=== PATIENT | female | born 1980 | race Caucasian/White ===

== ENCOUNTER 2017-11-03 14:46 | Emergency (ER) | payer BC ==
[~2017-11-03] VITALS: Ht 157.5 cm; Wt 105.7 kg
[~2017-11-03 14:46] MED LIST: ABILIFY10 MG; BACTRIM DS TAB1 EACH PO; BACTROBAN CREAM30 G1 TOP; BACTROBAN22 GM TP; BENADRYL25 MG PO; CEFDINIR; CELEXA40 MG PO; CIPROFLOXACIN500 M1 PO; CLEOCIN HCL150 MG PO; CLEOCIN HCL300 MG; CLEOCIN HCL300 MG PO; CLINDAMYCIN HC150 MG PO; CYMBALTA30 MG; DITROPAN XL10 M1 PO; DOXEPIN 10 MG C10 MG GT; DOXYCYCLINE; DOXYCYCLINE 10100 M1 PO; DOXYCYCLINE 10100 MG PO; DOXYCYCLINE150 MG; ERYTHROMYCIN E3.5 G1 OPHTHALMIC; EXPLANON; GABAPENTIN 100100 MG; HYDROCODONE-AP1 EAC6 PO; HYDROCORTISONE120 M1 TP; IBUPROFEN 800800 M1 PO; IBUPROFEN 800800 MG PO; LAMICTAL; LAMICTAL PO; LAMICTAL100 MG PO; LATUDA40 MG; LORTAB 5 MG/5001 TA1 PO; MACROBID 100 M100 M1 PO; METROGEL-VAGINA70 GM; MIRENA; NEURONTIN300 MG; NORCO 5-325 TA1 EAC1 PO; NORCO 5-325 TA1 EACH PO; NYSTATIN15 GM TP; ONDANSETRON HCL4 M2 PO; PERCOCET 10-321 EACH PO; PERCOCET 5-3251 EACH PO; PERCOCET 7.5-51 EACH PO; PERCOCET PO; PHENERGAN 25 MG25 MG PO; PREVACID30 MG PO; PROTONIX40 M1 PO; REXULTI1 MG PO; SORIATANE25 MG; STELARA90 MG/1 ML; TRILEPTAL150 MG PO; VISTARIL 25 MG25 M1 PO; ZOFRAN ODT4 MG PO; ZOFRAN4 MG PO
[2017-11-03] MEDS ORDERED: DOXYCYCLINE 10100 M1 PO (16:03)
[2017-11-03 16:09] VITALS: BP 141/85
[2017-11-03] MEDS ORDERED: NORCO 5-325 TA1 EACH PO (16:10)
== END 2017-11-03 16:11 | disposition home or self-care (01) ==
LOC: M.ERS 14:46
DX: L02.412 Cutaneous abscess of left axilla (principal); F17.210 Nicotine dependence, cigarettes, uncomplicated; Z88.1 Allergy status to other antibiotic agents; Z88.2 Allergy status to sulfonamides; Z88.8 Allergy status to other drugs, medicaments and biological substances

== ENCOUNTER 2018-05-20 21:59 | Emergency (ER) | payer OTHER ==
[~2018-05-20] VITALS: Ht 157.5 cm; Wt 101.6 kg
[2018-05-20] MEDS ORDERED: ZANTAC 150MG T150 MG PO (22:07)
[2018-05-20] MEDS ORDERED: NORCO 5-325 TA1 EAC1 PO (22:43)
[2018-05-20] MEDS ORDERED: CLINDAMYCIN HC300 MG PO (22:43)
[2018-05-20 22:52] VITALS: BP 140/89
== END 2018-05-20 22:53 | disposition home or self-care (01) ==
LOC: M.ERS 21:59
DX: L02.416 Cutaneous abscess of left lower limb (principal); F17.210 Nicotine dependence, cigarettes, uncomplicated; Z90.89 Acquired absence of other organs; Z90.49 Acquired absence of other specified parts of digestive tract; Z86.14 Personal history of Methicillin resistant Staphylococcus aureus infection; L40.9 Psoriasis, unspecified; Z88.2 Allergy status to sulfonamides; Z88.8 Allergy status to other drugs, medicaments and biological substances; Z88.1 Allergy status to other antibiotic agents

== ENCOUNTER 2018-10-30 19:15 | Emergency (ER) | payer OTHER ==
[~2018-10-30] VITALS: Ht 157.5 cm; Wt 105.2 kg
[~2018-10-30 19:15] MED LIST changes: +CLINDAMYCIN HC300 MG PO; +ZANTAC 150MG T150 MG PO
[2018-10-30] MEDS ORDERED: OMEPRAZOLE40 MG (19:25)
[2018-10-30] MEDS ORDERED: ATIVAN1 MG (19:25)
[2018-10-30] MEDS ORDERED: ROPINIROLE HCL2 M1 (19:26)
[2018-10-30] MEDS ORDERED: MYRBETRIQ50 MG (19:26)
[2018-10-30] MEDS ORDERED: DOXYCYCLINE MO100 M1 PO (19:48)
[2018-10-30] MEDS ORDERED: ACETAMINOPHEN-1 EAC1 PO (20:02)
[2018-10-30 20:19] VITALS: BP 139/77
== END 2018-10-30 20:20 | disposition home or self-care (01) ==
LOC: M.ERS 19:15
DX: L02.412 Cutaneous abscess of left axilla (principal); L40.9 Psoriasis, unspecified; F17.210 Nicotine dependence, cigarettes, uncomplicated; Z88.2 Allergy status to sulfonamides; Z88.1 Allergy status to other antibiotic agents; Z88.8 Allergy status to other drugs, medicaments and biological substances; Z90.49 Acquired absence of other specified parts of digestive tract; Z86.14 Personal history of Methicillin resistant Staphylococcus aureus infection

== ENCOUNTER 2018-11-28 21:00 | Emergency (ER) | payer OTHER ==
[~2018-11-28] VITALS: Ht 157.5 cm; Wt 101.6 kg
[~2018-11-28 21:00] MED LIST changes: +ACETAMINOPHEN-1 EAC1 PO; +ATIVAN1 MG; +DOXYCYCLINE MO100 M1 PO; +MYRBETRIQ50 MG; +OMEPRAZOLE40 MG; +ROPINIROLE HCL2 M1
[2018-11-28] MEDS ORDERED: NORCO 5-325 TA1 EAC1 PO (21:53)
[2018-11-28] MEDS ORDERED: DOXYCYCLINE 10100 M1 PO (21:53)
[2018-11-28 22:12] VITALS: BP 155/78
== END 2018-11-28 22:12 | disposition home or self-care (01) ==
LOC: M.ERS 21:00
DX: L02.411 Cutaneous abscess of right axilla (principal); L40.9 Psoriasis, unspecified; Z86.14 Personal history of Methicillin resistant Staphylococcus aureus infection; Z90.49 Acquired absence of other specified parts of digestive tract; Z88.2 Allergy status to sulfonamides; Z88.1 Allergy status to other antibiotic agents; Z88.8 Allergy status to other drugs, medicaments and biological substances; F17.210 Nicotine dependence, cigarettes, uncomplicated

== ENCOUNTER 2019-11-16 17:50 | Emergency (ER) | payer OTHER ==
[~2019-11-16] VITALS: Ht 157.5 cm; Wt 94.8 kg
[2019-11-16] MEDS ORDERED: BUSPIRONE HCL15 MG PO (17:58)
[2019-11-16] MEDS ORDERED: REXULTI0.25 MG PO (17:58)
[2019-11-16] MEDS ORDERED: FLONASE 0.05%50 MCG NARES (17:58)
[2019-11-16] MEDS ORDERED: RX NASAL SPRAY (17:59)
[2019-11-16] MEDS ORDERED: BENTYL 10 MG CA10 M1 PO (18:08)
[2019-11-16] MEDS ORDERED: VANCOCIN 125 M125 M1 PO (18:08)
[2019-11-16 18:26] LABS: ABSOLUTE BASOPHILS 0.1 thou/uL (0.0-0.2); ABSOLUTE EOSINOPHILS 0.1 thou/uL (0.0-0.7); ABSOLUTE LYMPHOCYTES 2.9 thou/uL (0.8-5.3); ABSOLUTE MONOCYTES 0.6 thou/uL (0.0-1.2); BASOPHILS 0.9 %; EOSINOPHILS 1.1 %; HEMATOCRIT 42.7 % (37.0-47.0); HEMOGLOBIN 15.2 gm/dL (12.0-15.0); LYMPHOCYTES 33.3 %; MCH 31.5 pg (26.0-34.0); MCHC 35.5 g/dL (28.0-37.0); MCV 88.9 fL (80.0-100.0); MONOCYTES 7.3 %; NUCLEATED RBCS 0 /100WBC; PLATELET COUNT* 355 thou/uL (150-400); POLYS 57.4 %; RBC 4.81 mil/uL (4.20-5.00); RDW-CV 13.7 % (10.5-14.5); WBC 8.8 thou/uL (4.0-11.0)
[2019-11-16 18:34] LABS: CALCIUM 8.6 mg/dL (8.5-10.1); CREATININE 0.9 mg/dL (0.6-1.3); POTASSIUM 3.9 mmol/L (3.5-5.1)
[2019-11-16 18:39] LABS: ALBUMIN 3.2 g/dL (3.4-5.0); TOTAL BILIRUBIN 0.4 mg/dL (<0.1-1.0); TOTAL PROTEIN 7.2 g/dL (6.4-8.2)
[2019-11-16 19:39] VITALS: BP 148/98
== END 2019-11-16 19:40 | disposition home or self-care (01) ==
LOC: M.ERS 17:50
PROVIDERS: Physician Assistant
DX: R19.7 Diarrhea, unspecified (principal); R10.84 Generalized abdominal pain; L40.9 Psoriasis, unspecified; F17.210 Nicotine dependence, cigarettes, uncomplicated; Z88.1 Allergy status to other antibiotic agents; Z88.2 Allergy status to sulfonamides; Z88.8 Allergy status to other drugs, medicaments and biological substances; Z86.14 Personal history of Methicillin resistant Staphylococcus aureus infection; Z90.49 Acquired absence of other specified parts of digestive tract

== ENCOUNTER 2019-11-18 07:24 | Emergency (ER) | payer OTHER ==
[~2019-11-18] VITALS: Ht 157.5 cm; Wt 94.8 kg
[~2019-11-18 07:24] MED LIST changes: +BENTYL 10 MG CA10 M1 PO; +BUSPIRONE HCL15 MG PO; +FLONASE 0.05%50 MCG NARES; +REXULTI0.25 MG PO; +RX NASAL SPRAY; +VANCOCIN 125 M125 M1 PO
[2019-11-18 08:01] LABS: URINE BILIRUBIN NEGATIVE (Negative); URINE BLOOD 1+ (Negative); URINE CLARITY CLEAR; URINE COLOR YELLOW; URINE GLUCOSE-RANDOM NEGATIVE (Negative); URINE KETONES NEGATIVE (Negative); URINE LEUKOCYTES-REFLEX NEGATIVE (Negative); URINE NITRITE-REFLEX NEGATIVE (Negative); URINE PROTEIN NEGATIVE (Negative); URINE SPECIFIC GRAVITY 1.025 (1.005-1.030); URINE UROBILINOGEN 0.2 E.U./dl (0.2-1.0)
[2019-11-18 08:10] LABS: ABSOLUTE BASOPHILS 0.1 thou/uL (0.0-0.2); ABSOLUTE EOSINOPHILS 0.1 thou/uL (0.0-0.7); ABSOLUTE LYMPHOCYTES 2.6 thou/uL (0.8-5.3); ABSOLUTE MONOCYTES 0.6 thou/uL (0.0-1.2); ABSOLUTE NEUTROPHILS 4.5 thou/uL (1.6-8.1); EOSINOPHILS 1.5 %; HEMATOCRIT 43.5 % (37.0-47.0); HEMOGLOBIN 15.2 gm/dL (12.0-15.0); LYMPHOCYTES 33.2 %; MCH 31.2 pg (26.0-34.0); MCV 89.1 fL (80.0-100.0); MONOCYTES 7.2 %; NUCLEATED RBCS 0 /100WBC; PLATELET COUNT* 352 thou/uL (150-400); POLYS 57.1 %; RBC 4.89 mil/uL (4.20-5.00); RDW-CV 13.7 % (10.5-14.5); WBC 7.9 thou/uL (4.0-11.0)
[2019-11-18 08:20] LABS: BACTERIA-REFLEX 1-9 Few /HPF (None Seen); CASTS None Seen /LPF (None Seen); CRYSTALS None Seen /LPF (None Seen); MUCUS None Seen strn/LPF (None Seen); SQUAMOUS 4-10 Moderate /LPF (0-3); URINE RBC 3-10 Few /HPF (0-2); URINE WBC-REFLEX 0-5 Rare /HPF (0-5)
[2019-11-18 08:21] LABS: CALCIUM 8.9 mg/dL (8.5-10.1); CREATININE 0.8 mg/dL (0.6-1.3); POTASSIUM 3.8 mmol/L (3.5-5.1)
[2019-11-18 08:26] LABS: ALBUMIN 3.5 g/dL (3.4-5.0); TOTAL BILIRUBIN 0.4 mg/dL (<0.1-1.0); TOTAL PROTEIN 7.5 g/dL (6.4-8.2)
[2019-11-18 08:52] VITALS: BP 123/84
== END 2019-11-18 08:53 | disposition home or self-care (01) ==
LOC: M.ERS 07:24
PROVIDERS: Emergency Medicine Emergency Medical Services
DX: E86.0 Dehydration (principal); L40.9 Psoriasis, unspecified; F17.210 Nicotine dependence, cigarettes, uncomplicated; Z88.2 Allergy status to sulfonamides; Z88.1 Allergy status to other antibiotic agents; Z88.8 Allergy status to other drugs, medicaments and biological substances; Z90.49 Acquired absence of other specified parts of digestive tract; Z86.14 Personal history of Methicillin resistant Staphylococcus aureus infection

== ENCOUNTER 2019-12-16 12:24 | Emergency (ER) | payer OTHER ==
[~2019-12-16] VITALS: Ht 157.5 cm; Wt 96.2 kg
[2019-12-16] MEDS ORDERED: DOXYCYCLINE 10100 MG PO ×2 (12:57)
[2019-12-16] MEDS ORDERED: NORCO 5-325 TA1 EAC1 PO ×2 (12:57)
[2019-12-16 13:20] VITALS: BP 156/84
== END 2019-12-16 13:21 | disposition home or self-care (01) ==
LOC: M.ERS 12:24
DX: L02.411 Cutaneous abscess of right axilla (principal); L73.2 Hidradenitis suppurativa; L40.9 Psoriasis, unspecified; F17.210 Nicotine dependence, cigarettes, uncomplicated; Z90.49 Acquired absence of other specified parts of digestive tract; Z86.14 Personal history of Methicillin resistant Staphylococcus aureus infection; Z88.1 Allergy status to other antibiotic agents; Z88.2 Allergy status to sulfonamides; Z88.8 Allergy status to other drugs, medicaments and biological substances

== ENCOUNTER 2019-12-30 20:20 | Emergency (ER) | payer OTHER ==
[~2019-12-30] VITALS: Ht 157.5 cm; Wt 94.8 kg
[2019-12-31] MEDS ORDERED: HYDROCODON-ACE1 EAC7 PO (00:01)
[2019-12-31] MEDS ORDERED: IBUPROFEN 800800 MG PO (00:01)
[2019-12-31 00:32] VITALS: BP 142/90
== END 2019-12-31 00:34 | disposition home or self-care (01) ==
LOC: M.ERS 20:20
DX: L73.2 Hidradenitis suppurativa (principal); F17.210 Nicotine dependence, cigarettes, uncomplicated; Z90.49 Acquired absence of other specified parts of digestive tract; Z86.14 Personal history of Methicillin resistant Staphylococcus aureus infection; Z88.1 Allergy status to other antibiotic agents

== ENCOUNTER 2021-06-16 17:57 | Emergency (ER) | payer OTHER, MEDICAID ==
[~2021-06-16] VITALS: Ht 157.5 cm; Wt 103.4 kg
[~2021-06-16 17:57] MED LIST changes: +ATIVAN1 M1 PO; -ATIVAN1 MG; +HYDROCODON-ACE1 EAC7 PO; -LATUDA40 MG; +LATUDA40 MG PO
[2021-06-16 18:05] VITALS: BP 155/106
== END 2021-06-16 20:15 | disposition left against medical advice (07) ==
LOC: M.ERS 17:57
DX: M25.511 Pain in right shoulder (principal); Z53.21 Procedure and treatment not carried out due to patient leaving prior to being seen by health care provider; X50.0XXA Overexertion from strenuous movement or load, initial encounter; Y93.89 Activity, other specified; Y92.89 Other specified places as the place of occurrence of the external cause; Y99.8 Other external cause status

== ENCOUNTER 2021-07-04 04:20 | Emergency (ER) | payer OTHER, MEDICAID ==
[~2021-07-04] VITALS: Ht 160 cm; Wt 103.0 kg
[2021-07-04] MEDS ORDERED: DOXYCYCLINE 10100 MG PO (04:44)
[2021-07-04] MEDS ORDERED: HYDROCODON-ACE1 EAC8 PO (04:44)
== END 2021-07-04 04:59 | disposition home or self-care (01) ==
LOC: M.ERS 04:20
DX: L02.411 Cutaneous abscess of right axilla (principal); F17.210 Nicotine dependence, cigarettes, uncomplicated; Z90.89 Acquired absence of other organs; Z90.49 Acquired absence of other specified parts of digestive tract; Z79.899 Other long term (current) drug therapy; Z88.6 Allergy status to analgesic agent; Z88.2 Allergy status to sulfonamides; Z88.8 Allergy status to other drugs, medicaments and biological substances; Z88.1 Allergy status to other antibiotic agents

== ENCOUNTER 2021-07-17 18:25 | Emergency (ER) | payer OTHER, MEDICAID ==
[~2021-07-17] VITALS: Ht 157.5 cm; Wt 101.6 kg
[~2021-07-17 18:25] MED LIST changes: +HYDROCODON-ACE1 EAC8 PO
[2021-07-17] MEDS ORDERED: NORCO5 PO ×2 (19:13→19:19)
[2021-07-17] MEDS ORDERED: DOXYCYCLINE 10100 MG PO (19:13)
[2021-07-17] MEDS ORDERED: CENTANY30 GM TOP (19:13)
[2021-07-17 19:30] VITALS: BP 125/70
== END 2021-07-17 19:30 | disposition home or self-care (01) ==
LOC: M.ERS 18:25
DX: L02.416 Cutaneous abscess of left lower limb (principal); F17.210 Nicotine dependence, cigarettes, uncomplicated; Z90.49 Acquired absence of other specified parts of digestive tract; Z98.890 Other specified postprocedural states; Z79.899 Other long term (current) drug therapy; Z88.6 Allergy status to analgesic agent; Z88.1 Allergy status to other antibiotic agents; Z88.5 Allergy status to narcotic agent; Z88.2 Allergy status to sulfonamides; Z88.8 Allergy status to other drugs, medicaments and biological substances

== ENCOUNTER 2021-09-25 13:06 | Emergency (ER) | payer OTHER, MEDICAID ==
[~2021-09-25] VITALS: Ht 157.5 cm; Wt 104.3 kg
[~2021-09-25 13:06] MED LIST changes: +CENTANY30 GM TOP; +NORCO5 PO
[2021-09-25] MEDS ORDERED: CAPLYTA42 MG PO (13:17)
[2021-09-25] MEDS ORDERED: HYDROCODON-ACE1 EAC7 PO (14:09)
[2021-09-25 14:15] VITALS: BP 148/106
[2021-09-25] MEDS ORDERED: LIDODERM1 EACH TOP (14:16)
== END 2021-09-25 14:16 | disposition home or self-care (01) ==
LOC: M.ERS 13:06
DX: M54.50 Low back pain, unspecified (principal); F17.210 Nicotine dependence, cigarettes, uncomplicated; Z88.6 Allergy status to analgesic agent; Z88.1 Allergy status to other antibiotic agents; Z88.8 Allergy status to other drugs, medicaments and biological substances; Z79.899 Other long term (current) drug therapy; Z90.49 Acquired absence of other specified parts of digestive tract; Z98.890 Other specified postprocedural states; X50.1XXA Overexertion from prolonged static or awkward postures, initial encounter; Y93.89 Activity, other specified; Y92.89 Other specified places as the place of occurrence of the external cause; Y99.9 Unspecified external cause status